=== PATIENT | female | born 1960 | race Caucasian/White ===

== ENCOUNTER 2017-01-19 10:42 | Inpatient (IN) ==
[2017-01-15 13:36] LABS: Appearance,Urine CLOUDY; Bacteria,Urine 0 /hpf (0); Bilirubin,Urine NEG (NEG); Color,Urine YELLOW; Glucose,Urine (UA) NEGATIVE (NEG); Leukocyte Esterase,Urine 25 /uL (NEG); Mucus,Urine FEW /hpf (0); Nitrate,Urine NEG (NEG); Protein,Urine NEG (NEG); Urine Amorphous Crystals FEW /hpf (0); Urine Blood NEG mg/dL (<0.03); Urine RBC < 1 /hpf (0-1); Urine Squamous Epithelial Cell 2 /hpf (0-4); Urine WBC 1 /hpf (0-4); Urobilinogen,Urine NEG (NEG)
[2017-01-15 14:39] LABS: Basophils # (Auto) 0 K/mcL (0.0-0.3); Basophils % (Auto) 0.4 % (0.0-2.0); Eosinophils # (Auto) 0.3 K/mcL (0.0-0.7); Eosinophils % (Auto) 3.3 % (0.0-7.0); Granulocytes % (Auto) 57.6 % (38.0-78.0); Lymphocytes # (Auto) 2.6 K/mcL (1.5-4.8); Lymphocytes % (Auto) 29.6 % (15.5-49.0); Mean Cell Volume 83.8 fL (80.0-100.0); Mean Corpuscular HGB Conc 33.3 g/dL (31.0-36.0); Mean Corpuscular Hemoglobin 27.9 pg (26.0-34.0); Monocytes # (Auto) 0.8 K/mcL (0.1-0.9); Monocytes % (Auto) 9.1 % (1.0-12.0); Platelet Count 282 K/mcL (140-440); RBC 5.23 M/mcL (4.00-5.20); Red Cell Distribution Width 14.6 % (11.5-14.5)
[2017-01-15 14:54] LABS: Blood Urea Nitrogen 13 mg/dl (6-20)
[~2017-01-19 10:42] MED LIST: ACETAMINOPHEN 500 MG TABLET PO SCH; CELECOXIB 200 MG CAPSULE PO SCH; KETOROLAC 30 MG, ROPIVACAINE HCL/PF 49.5 ML, EPINEPHrine 0.5 MG, 0.9 % SODIUM CHLORIDE ... IJ SCH; PREGABALIN 75 MG CAPSULE PO SCH; ceFAZolin 1 GM VIAL IV SCH; oxyCODONE 10 MG TAB.ER.12H PO SCH
[2017-01-19 12:00] LABS: Appearance,Urine CLEAR; Bilirubin,Urine NEG (NEG); Color,Urine YELLOW; Glucose,Urine (UA) NEGATIVE (NEG); Leukocyte Esterase,Urine NEG /uL (NEG); Nitrate,Urine NEG (NEG); Protein,Urine NEG (NEG); Specific Gravity,Urine 1.018 (1.000-1.035); Urine Blood NEG mg/dL (<0.03); Urobilinogen,Urine NEG (NEG)
[2017-01-19] MEDS ORDERED: ONDANSETRON 4 MG/2 ML VIAL IV ONE (12:25)
[2017-01-19] MEDS ORDERED: PROPOFOL 200 MG/20 ML VIAL IV ONE (12:25)
[2017-01-19] MEDS ORDERED: MIDAZOLAM 5 MG/5 ML VIAL IV ONE (12:25)
[2017-01-19] MEDS ORDERED: TRANEXAMIC ACID 1,000 MG/10 ML VIAL IV ONE ×2 (12:25→14:06)
[2017-01-19] MEDS ORDERED: DEXAMETHASONE 10 MG/ML VIAL IV ONE (12:25)
[2017-01-19] MEDS ORDERED: ROPIVACAINE HCL/PF 30 ML VIAL IJ ONE (12:25)
[2017-01-19] MEDS ORDERED: LIDOCAINE HCL/PF 100 MG/5 ML SYRINGE IV ONE (12:25)
[2017-01-19] MEDS ORDERED: GENTAMICIN SULFATE 800 MG/20 ML VIAL IR ONE (13:14)
[2017-01-19] MEDS ORDERED: FLEETS ADULT ENEMA PR PRN (14:06)
[2017-01-19] MEDS ORDERED: ACETAMINOPHEN 325 MG TABLET PO PRN (14:06)
[2017-01-19] MEDS ORDERED: BENZOCAINE/MENTHOL 1 LOZENGE PO PRN ×2 (14:06→14:26)
[2017-01-19] MEDS ORDERED: TEMAZEPAM 15 MG CAPSULE PO PRN (14:06)
[2017-01-19] MEDS ORDERED: MAGNESIUM HYDROXIDE 30 ML ORAL.SUSP PO PRN (14:06)
[2017-01-19] MEDS ORDERED: POLYETHYLENE GLYCOL 3350 17 GM PACKET PO PRN (14:06)
[2017-01-19] MEDS ORDERED: BISACODYL 10 MG SUPP.RECT PR PRN (14:06)
[2017-01-19] MEDS ORDERED: IPRATROPIUM/ALBUTEROL 3 ML AMPUL.NEB NEB PRN (14:26)
[2017-01-19] MEDS ORDERED: NALOXONE HCL 0.4 MG/ML VIAL IV PRN (14:26)
[2017-01-19] MEDS ORDERED: diphenhydrAMINE 50 MG/ML VIAL IV PRN (14:26)
[2017-01-19] MEDS ORDERED: PROMETHAZINE 25 MG/ML VIAL IV PRN (14:26)
[2017-01-19] MEDS ORDERED: LACTATED RINGERS 250 ML IV PRN (14:26)
[2017-01-19] MEDS ORDERED: fentaNYL 100 MCG/2 ML VIAL IV PRN (14:26)
[2017-01-19] MEDS ORDERED: MEPERIDINE 25 MG/ML SYRINGE IV PRN (14:26)
[2017-01-19] MEDS ORDERED: FLUMAZENIL 0.1 MG/ML ML IV PRN (14:26)
[2017-01-19] MEDS ORDERED: METHOCARBAMOL 1,000 MG/10 ML VIAL IV PRN (14:26)
[2017-01-19] MEDS ORDERED: ONDANSETRON 4 MG/2 ML VIAL IV PRN (14:26)
[2017-01-19] MEDS ORDERED: ACETAMINOPHEN 1,000 MG/100 ML BOTTLE IV ONE (14:26)
[2017-01-19] MEDS ORDERED: LACTATED RINGERS 1,000 ML IV SCH (14:30)
--- NOTE | 2017-01-19 14:51 | XRay Report ---
CLINICAL INFORMATION: Postsurgical follow-up TECHNIQUE: AP and crosstable lateral right knee COMPARISON: None. FINDINGS: Status post right total knee arthroplasty. Femoral and tibial complements are in anatomic positions. There is postsurgical soft tissue and intra-articular gas. IMPRESSION: Right total knee arthroplasty Interpreted and Authenticated by: Dipesh Rico 01/19/17
[2017-01-19] MEDS: 0.45 % SODIUM CHLORIDE 1,000 ML IV SCH (15:36)
[2017-01-19] MEDS: HYDROcodone/APAP 10/325MG TABLET PO PRN ×3 (16:18→23:33)
--- NOTE | 2017-01-19 16:42 | Brief Operative Note ---
Date of procedure: 01/19/17 Pre-op diagnosis: Right knee djd Post-op diagnosis: same Procedure: right knee tka with shayla robot Grafts/Implants: Yes Anesthesia: GETA Complications Description: 01/19/17 16:41 none Surgeon: Taiwo Xie Electric Melt Operator: Donnie Hudson Estimated blood loss (cc): 20 Tourniquet Time (Minutes): 55 Specimens Removed/Pathology: none sent Condition: stable Disposition: PACU
[2017-01-19] MEDS: KETOROLAC 15 MG/ML VIAL IV SCH ×2 (17:34→23:33)
[2017-01-19] MEDS: HYDROmorphone 2 MG/ML SYRINGE IV PRN (18:15)
[2017-01-19] MEDS: ceFAZolin 1 GM VIAL IV SCH (20:47)
[2017-01-19] MEDS: ASPIRIN 325 MG ENTERIC COATED TABLET PO SCH (20:48)
[2017-01-19] MEDS: 0.9 % SODIUM CHLORIDE 10 ML SYRINGE IV SCH (20:48)
[2017-01-19] MEDS: SENNOSIDES 1 TABLET PO SCH (20:48)
[2017-01-19] MEDS: DOCUSATE SODIUM 100 MG CAPSULE PO SCH (20:48)
[2017-01-19] MEDS: LORazepam 1 MG TABLET PO PRN (22:30)
[2017-01-19] MEDS: TOPIRAMATE 100 MG TABLET PO SCH (22:30)
[2017-01-19] MEDS: QUEtiapine 100 MG TABLET PO SCH (22:30)
[2017-01-19] MEDS: NORTRIPTYLINE 25 MG CAPSULE PO SCH (22:30)
[2017-01-20] MEDS: 0.45 % SODIUM CHLORIDE 1,000 ML IV SCH ×2 (01:22→11:01)
[2017-01-20] MEDS: ceFAZolin 1 GM VIAL IV SCH (03:40)
[2017-01-20] MEDS: HYDROcodone/APAP 10/325MG TABLET PO PRN ×5 (04:14→23:07)
[2017-01-20] MEDS: 0.9 % SODIUM CHLORIDE 10 ML SYRINGE IV SCH ×4 (05:19→21:38)
[2017-01-20] MEDS: KETOROLAC 15 MG/ML VIAL IV SCH ×4 (05:50→23:57)
[2017-01-20] MEDS: HYDROmorphone 2 MG/ML SYRINGE IV PRN (06:59)
--- NOTE | 2017-01-20 08:00 | Orthopedic Progress Note ---
Subjective Patient information: Note initiated : 01/20/17 at 8:00 am Service Date, if different from initiated Date: [] Patient: Sunita Rich 56 y/o F admitted on 01/19/17 for Right Total Knee Arthroplasty with shayla Assist. Chief Complaint: [doing well no cp no sob] Objective Vital signs: Vital Signs Temp Pulse Resp BP Pulse Ox 01/20/17 07:35 98 01/20/17 04:00 97.7 F 86 22 136/81 96 01/19/17 23:35 97.8 F 90 22 127/79 94 01/19/17 23:34 94 01/19/17 20:17 93 01/19/17 19:18 98.6 F 101 H 24 H 119/63 94 01/19/17 17:30 92 H 20 120/78 95 01/19/17 17:00 98.4 F 92 H 20 120/78 95 01/19/17 16:30 90 130/84 97 01/19/17 16:00 84 138/80 96 01/19/17 15:45 82 152/84 91 01/19/17 15:15 98.0 F 20 130/80 92 01/19/17 15:03 97.2 F 84 19 134/57 95 01/19/17 14:55 84 21 164/69 96 01/19/17 14:50 88 17 117/69 100 01/19/17 14:40 84 19 131/62 100 01/19/17 14:35 87 19 136/61 99 01/19/17 14:30 86 18 140/63 98 01/19/17 14:25 97.6 F 89 25 H 121/61 98 01/19/17 10:55 97.9 F 20 128/85 95 Intake and Output 01/19/17 01/20/17 01/20/17 21:59 05:59 13:59 Intake Total 2563 / 2563 1177 / 1177 Output Total 951 / 951 850 / 850 500 / 500 Balance 1612 / 1612 327 / 327 -500 / -500 Intake: IV 2563 / 2563 977 / 977 Sodium Chloride 0.45% 1, 977 / 977 000 ml @ 100 mls/hr IV . Q10H [facility] Rx#:[id number] Oral 200 / 200 Output: Void Amount 850 / 850 850 / 850 500 / 500 # of times incontinent of 1 / 1 urine Estimated Blood Loss 100 / 100 Other: # Voids 1 1 Weight 270 lb Intake & Output: Intake & Output 01/19/17 01/20/17 01/20/17 21:59 05:59 13:59 Intake Total 2563 / 2563 1177 / 1177 Output Total 951 / 951 850 / 850 500 / 500 Balance 1612 / 1612 327 / 327 -500 / -500 Weight 270 lb Intake: IV 2563 / 2563 977 / 977 Sodium Chloride 0.45% 1, 977 / 977 000 ml @ 100 mls/hr IV . Q10H [facility] Rx#:[id number] Oral 200 / 200 Output: Void Amount 850 / 850 850 / 850 500 / 500 # of times incontinent of 1 / 1 urine Estimated Blood Loss 100 / 100 Other: # Voids 1 1 Incision: Yes healing Incision clean and dry: Yes Dressing: Yes clean Weight bearing status: full Neurological exam IM: Yes oriented X3, Yes neurovascular intact Extremities exam IM: Yes Foot pink and warm, Yes neurovascular intact - Labs CBC & BMP: 01/20/17 05:20 01/15/17 12:01 Labs: Orthopedic Labs 01/15/17 12:01 PT 13.6 INR 1.0 APTT 28 01/20/17 01/15/17 05:20 12:01 Hgb 14.6 Hct 34.7 L 43.8
--- NOTE | 2017-01-20 08:03 | Discharge Summary ---
Ortho Discharge - TKA - Patient Instructions Diet: Regular Diet Activity: activity as tolerated, weight bearing as tolerated Total Knee Protocol: For Total Knee: Start ROM ALICIA with stationary bike or rocking chair. Work on gaining full extension of knee. Posterior dislocation precautions provided. Hip abductor strengthening and gait training instructions provided. Apply Cryocuff as instructed. Dressing Care: Aquacel Ag - leave on for 5 days Patient Education: Total Knee Replacement (DC) Additional Instructions: CPM for home use - Follow Up Plan Follow Up Appointments: Taiwo Xie MD [Physician] - 02/03/17 3:10 pm Disposition: Home, Self-Care Prognosis: Good Rehab Potential: Good I certify that the patient requires SNF services: No Overall status at discharge: patient is progressing back to baseline - Orders For Discharge Prescriptions: HYDROcodone/APAP 10/325MG [[place] 10/325Mg] 1 - 2 tab PO Q4H PRN #60 tablet PRN Reason: Pain Additional Discharge Orders: Physical Therapy at Discharge - TKA Location: Determined By Patient Toilet Riser Discharge Order Location: Determined By Patient Walker Location: Determined By Patient
[2017-01-20] MEDS: PANTOPRAZOLE 40 MG TABLET PO SCH (08:04)
[2017-01-20] MEDS: ARIPIPRAZOLE 10 MG TABLET PO SCH (09:59)
[2017-01-20] MEDS: DOCUSATE SODIUM 100 MG CAPSULE PO SCH ×2 (10:00→19:55)
[2017-01-20] MEDS: ASPIRIN 325 MG ENTERIC COATED TABLET PO SCH ×2 (10:01→19:55)
[2017-01-20] MEDS: FUROSEMIDE 20 MG TABLET PO SCH ×2 (10:02→12:54)
[2017-01-20] MEDS: DULoxetine 30 MG CAPSULE PO SCH (10:04)
[2017-01-20] MEDS: LORazepam 1 MG TABLET PO PRN ×2 (10:06→19:54)
[2017-01-20] MEDS: ONDANSETRON 4 MG/2 ML VIAL IV PRN (19:51)
[2017-01-20] MEDS: TOPIRAMATE 100 MG TABLET PO SCH (19:54)
[2017-01-20] MEDS: QUEtiapine 100 MG TABLET PO SCH (19:55)
[2017-01-20] MEDS: SENNOSIDES 1 TABLET PO SCH (19:55)
[2017-01-20] MEDS: NORTRIPTYLINE 25 MG CAPSULE PO SCH (19:55)
[2017-01-21] MEDS: HYDROcodone/APAP 10/325MG TABLET PO PRN ×3 (04:31→12:28)
[2017-01-21] MEDS: KETOROLAC 15 MG/ML VIAL IV SCH ×2 (05:05→12:29)
[2017-01-21] MEDS: 0.9 % SODIUM CHLORIDE 10 ML SYRINGE IV SCH (05:21)
--- NOTE | 2017-01-21 07:07 | Orthopedic Progress Note ---
Subjective Patient information: Note initiated : 01/21/17 at 7:06 am Service Date, if different from initiated Date: [] Patient: Sunita Rich 56 y/o F admitted on 01/19/17 for Right Total Knee Arthroplasty with shayla Assist. Chief Complaint: [minimal pain with no cp no sob] Objective Vital signs: Vital Signs Temp Pulse Resp BP Pulse Ox 01/21/17 04:00 98.6 F 91 H 26 H 97/62 94 01/20/17 23:17 98.5 F 111 H 28 H 108/74 93 01/20/17 21:06 99.0 F H 01/20/17 19:15 101.5 F H 123 H 30 H 127/78 93 01/20/17 17:11 98.9 F 104 H 22 166/79 97 01/20/17 11:46 98.2 F 89 16 110/74 92 01/20/17 07:57 98 F 86 135/70 91 01/20/17 07:35 98 Intake and Output 01/20/17 01/21/17 01/21/17 21:59 05:59 13:59 Intake Total 600 / 600 1580 / 1580 Output Total 200 / 200 Balance 599 / 599 1380 / 1380 Intake: Oral 600 / 600 1580 / 1580 Output: Void Amount 200 / 200 Other: Meal Dinner Percent of Meal Consumed 0% # Voids 1 1 # Bowel Movements 0 Weight 272 lb 275 lb Intake & Output: Intake & Output 01/20/17 01/21/17 01/21/17 21:59 05:59 13:59 Intake Total 600 / 600 1580 / 1580 Output Total 200 / 200 Balance 599 / 599 1380 / 1380 Weight 272 lb 275 lb Intake: Oral 600 / 600 1580 / 1580 Output: Void Amount 200 / 200 Other: Meal Dinner Percent of Meal Consumed 0% # Voids 1 1 # Bowel Movements 0 Incision: Yes healing Incision clean and dry: Yes Dressing: Yes clean Weight bearing status: full Neurological exam IM: Yes oriented X3, Yes neurovascular intact Extremities exam IM: Yes Foot pink and warm (dc home), Yes neurovascular intact - Labs CBC & BMP: 01/20/17 05:20 01/15/17 12:01 Labs: Orthopedic Labs 01/15/17 12:01 PT 13.6 INR 1.0 APTT 28 01/20/17 01/15/17 05:20 12:01 Hgb 14.6 Hct 34.7 L 43.8
[2017-01-21] MEDS: PANTOPRAZOLE 40 MG TABLET PO SCH (07:10)
[2017-01-21] MEDS: ASPIRIN 325 MG ENTERIC COATED TABLET PO SCH (08:25)
[2017-01-21] MEDS: DOCUSATE SODIUM 100 MG CAPSULE PO SCH (08:25)
[2017-01-21] MEDS: ARIPIPRAZOLE 10 MG TABLET PO SCH (08:25)
[2017-01-21] MEDS: DULoxetine 30 MG CAPSULE PO SCH (08:25)
[2017-01-21] MEDS: FUROSEMIDE 20 MG TABLET PO SCH ×2 (08:25→12:28)
[2017-01-21] MEDS: ONDANSETRON 4 MG/2 ML VIAL IV PRN (09:14)
== END 2017-01-21 15:30 | disposition home or self-care (01) | DRG 470 ==
LOC: MEDSUR 10:42
PROVIDERS: ADMIT Orthopaedic Surgery; ATTEND Orthopaedic Surgery

== ENCOUNTER 2018-09-13 08:07 | Inpatient (IN) ==
[2018-09-07 12:01] LABS: Appearance,Urine HAZY; Bacteria,Urine FEW /hpf (0); Bilirubin,Urine NEG (NEG); Color,Urine YELLOW; Glucose,Urine (UA) NEGATIVE (NEG); Leukocyte Esterase,Urine 500 /uL (NEG); Protein,Urine NEG (NEG); Specific Gravity,Urine 1.018 (1.000-1.035); Urine Blood 0.03 mg/dL (<0.03); Urine RBC 4 /hpf (0-1); Urine Squamous Epithelial Cell 5 /hpf (0-4); Urine WBC 41 /hpf (0-4); Urobilinogen,Urine NEG (NEG)
[2018-09-07 12:14] LABS: Basophils # (Auto) 0 K/mcL (0.0-0.3); Basophils % (Auto) 0.5 % (0.0-2.0); Eosinophils # (Auto) 0.2 K/mcL (0.0-0.7); Granulocytes % (Auto) 66.5 % (38.0-78.0); Lymphocytes # (Auto) 1.9 K/mcL (1.5-4.8); Lymphocytes % (Auto) 23.9 % (15.5-49.0); Mean Cell Volume 84.2 fL (80.0-100.0); Mean Corpuscular HGB Conc 32.2 g/dL (31.0-36.0); Monocytes # (Auto) 0.5 K/mcL (0.1-0.9); Monocytes % (Auto) 6.1 % (1.0-12.0); Platelet Count 241 K/mcL (140-440); Red Cell Distribution Width 14.1 % (11.5-14.5)
[2018-09-07 12:26] LABS: Blood Urea Nitrogen 28 mg/dl (6-20)
[~2018-09-13 08:07] MED LIST changes: +0.9 % SODIUM CHLORIDE 9 ML, KETOROLAC 30 MG, ROPIVACAINE HCL/PF 49.5 ML, EPINEPHrine 0.... IJ SCH; -KETOROLAC 30 MG, ROPIVACAINE HCL/PF 49.5 ML, EPINEPHrine 0.5 MG, 0.9 % SODIUM CHLORIDE ... IJ SCH
[2018-09-13 10:20] LABS: Appearance,Urine CLEAR; Bilirubin,Urine NEG (NEG); Color,Urine YELLOW; Glucose,Urine (UA) NEGATIVE (NEG); Leukocyte Esterase,Urine NEG /uL (NEG); Protein,Urine NEG (NEG); Specific Gravity,Urine 1.017 (1.000-1.035); Urine Blood NEG mg/dL (<0.03); Urobilinogen,Urine NEG (NEG)
[2018-09-13] MEDS ORDERED: GENTAMICIN SULFATE 800 MG/20 ML VIAL IR ONE (10:46)
[2018-09-13] MEDS ORDERED: ROPIVACAINE HCL/PF 20 ML VIAL IJ ONE (11:37)
[2018-09-13] MEDS ORDERED: PROPOFOL 200 MG/20 ML VIAL IV ONE (11:37)
[2018-09-13] MEDS ORDERED: MIDAZOLAM 5 MG/5 ML VIAL IV ONE (11:37)
[2018-09-13] MEDS ORDERED: DEXAMETHASONE 10 MG/ML VIAL IV ONE (11:37)
[2018-09-13] MEDS ORDERED: TRANEXAMIC ACID 1,000 MG/10 ML VIAL IV ONE ×2 (11:37→14:19)
[2018-09-13] MEDS ORDERED: LIDOCAINE HCL/PF 100 MG/5 ML SYRINGE IV ONE (11:37)
[2018-09-13] MEDS ORDERED: ONDANSETRON 4 MG/2 ML VIAL IV ONE (11:37)
[2018-09-13] MEDS ORDERED: METHOCARBAMOL 1,000 MG/10 ML VIAL IV PRN (14:19)
[2018-09-13] MEDS ORDERED: fentaNYL 100 MCG/2 ML VIAL IV PRN (14:19)
[2018-09-13] MEDS ORDERED: diphenhydrAMINE 50 MG/ML VIAL IV PRN (14:19)
[2018-09-13] MEDS ORDERED: METOPROLOL TARTRATE 5 MG/5 ML VIAL IV PRN (14:19)
[2018-09-13] MEDS ORDERED: ATROPINE SULFATE 0.4 MG/ML VIAL IV PRN (14:19)
[2018-09-13] MEDS ORDERED: IPRATROPIUM/ALBUTEROL 3 ML AMPUL.NEB NEB PRN (14:19)
[2018-09-13] MEDS ORDERED: MAGNESIUM HYDROXIDE 30 ML ORAL.SUSP PO PRN (14:19)
[2018-09-13] MEDS ORDERED: BISACODYL 10 MG SUPP.RECT PR PRN (14:19)
[2018-09-13] MEDS ORDERED: POLYETHYLENE GLYCOL 3350 17 GM PACKET PO PRN (14:19)
[2018-09-13] MEDS ORDERED: MEPERIDINE 25 MG/ML SYRINGE IV PRN (14:19)
[2018-09-13] MEDS ORDERED: FLEETS ADULT ENEMA PR PRN (14:19)
[2018-09-13] MEDS ORDERED: NALOXONE HCL 0.4 MG/ML VIAL IV PRN (14:19)
[2018-09-13] MEDS ORDERED: ePHEDrine 50 MG/ML AMPUL IV PRN (14:19)
[2018-09-13] MEDS ORDERED: BENZOCAINE/MENTHOL 1 LOZENGE PO PRN (14:19)
[2018-09-13] MEDS ORDERED: ONDANSETRON 4 MG/2 ML VIAL IV PRN ×2 (14:19)
[2018-09-13] MEDS ORDERED: PROMETHAZINE 25 MG/ML VIAL IV PRN (14:19)
[2018-09-13] MEDS ORDERED: ACETAMINOPHEN 325 MG TABLET PO PRN (14:19)
[2018-09-13] MEDS ORDERED: FLUMAZENIL 0.1 MG/ML ML IV PRN (14:19)
[2018-09-13] MEDS ORDERED: HYDROmorphone 2 MG/ML VIAL IV PRN (14:19)
--- NOTE | 2018-09-13 14:19 | Brief Operative Note ---
Date of procedure: 09/13/18 Pre-op diagnosis: left knee djd severe Post-op diagnosis: same Procedure: left tka with robotics Grafts/Implants: Yes Anesthesia: GETA Complications: none Surgeon: Taiwo Xie Conference And Event Organiser: Shanta Sánchez Estimated blood loss (cc): 100 Tourniquet Time (Minutes): 56 Specimens Removed/Pathology: none sent Condition: stable Disposition: PACU
[2018-09-13] MEDS ORDERED: LACTATED RINGERS 1,000 ML IV SCH (14:30)
--- NOTE | 2018-09-13 15:32 | Operative Note ---
DATE OF OPERATION: 09/13/2018 PREOPERATIVE DIAGNOSIS: Left knee degenerative arthritis, severe. POSTOPERATIVE DIAGNOSIS: Left knee degenerative arthritis, severe. PROCEDURE: Left total knee arthroplasty using the [employer] robot. SURGEON: Taiwo Xie M.D. SALES AND DISTRIBUTION CLERK: Shanta Sánchez PA-C. COMPLICATIONS: None. ESTIMATED BLOOD LOSS: About 100 mL. IMPLANTS: Per nurse's note. Regional blocks were performed during the case DESCRIPTION OF PROCEDURE: The patient was brought to the operating room and put to sleep with general LMA anesthesia. Once asleep, the patient had the left leg sterilely prepped and draped in the usual sterile fashion. Timeout had been performed. We placed pins above and below the knee, registered the center of hip rotation. A midvastus approach performed. The patient tolerated this well without complication. We then inspected all areas of the knee which demonstrated severe arthritis of all three compartments. Once done, we then registered thirty points on the femur, thirty points on the tibia, intra-articular pins, medial and lateral malleoli, and registered center of hip rotation. We balanced the knee at 90 degrees and 15 degrees. Once all done, we then noted that the patient had about 10 to 12 degrees of flexion contracture. At this point, this was balanced into the implant and the robot brought in. The bony cuts were made. We implanted a size 3 tibia, size 3 femoral component with a 10 mm cruciate stabilizing design with a deep dish tray and 10 mm poly. The patella was a 33 mm patella that covered nicely. There were no complications. The components were all cemented into place. Using pulse lavage as well as CarboJet to clean the bone, excess debris was removed, and we irrigated the knee thoroughly keeping the knee at 40 degrees in bend until all components were dry. Once done, we then closed the midvastus approach with #1 Stratafix x2 sutures. Excellent repair. We took the knee back through the range of motion to make sure there was not any significant bleeding and that it had full range of motion which it did. The patella tracked anatomically perfect. There were no complications. Skin was closed with 0 Vicryl, 2-0 Vicryl and adhesive closure. Portals were closed with 4-0 nylon. All pins were accounted for, both intra-articular and femoral and tibial pins. ZACHARY:shalini Job ID: [id number] Doc ID: [id number] Taiwo Xie MD
--- NOTE | 2018-09-13 15:34 | XRay Report ---
HISTORY: Postop left knee replacement FINDINGS: There is a well-positioned left total knee prosthesis. There is no fracture. There is fluid in the suprapatellar recess. A small soft tissue calcification is seen beneath the patella IMPRESSION: Well-positioned left knee prosthesis Interpreted and Authenticated by: Rafat Salas 09/13/18
[2018-09-13] MEDS: HYDROcodone/APAP 10/325MG TABLET PO PRN ×2 (16:09→20:02)
[2018-09-13] MEDS: 0.45 % SODIUM CHLORIDE 1,000 ML IV SCH (16:09)
[2018-09-13] MEDS: KETOROLAC 15 MG/ML VIAL IV SCH (17:38)
[2018-09-13] MEDS: HYDROmorphone 2 MG/ML VIAL IV PRN ×2 (19:05→22:12)
[2018-09-13] MEDS ORDERED: MELOXICAM 7.5 MG TABLET PO SCH (21:00)
[2018-09-13] MEDS: MELATONIN 3 MG TABLET PO SCH (21:25)
[2018-09-13] MEDS: NORTRIPTYLINE 25 MG CAPSULE PO SCH (21:25)
[2018-09-13] MEDS: SENNOSIDES 1 TABLET PO SCH (21:25)
[2018-09-13] MEDS: ASPIRIN 325 MG ENTERIC COATED TABLET PO SCH (21:25)
[2018-09-13] MEDS: DOCUSATE SODIUM 100 MG CAPSULE PO SCH (21:25)
[2018-09-13] MEDS: LORazepam 1 MG TABLET PO PRN (21:26)
[2018-09-13] MEDS: TOPIRAMATE 100 MG TABLET PO SCH (21:26)
[2018-09-13] MEDS: ceFAZolin 1 GM VIAL IV SCH (21:31)
[2018-09-13] MEDS: 0.9 % SODIUM CHLORIDE 10 ML SYRINGE IV SCH (21:31)
[2018-09-13] MEDS: TEMAZEPAM 15 MG CAPSULE PO PRN (23:13)
[2018-09-14] MEDS: KETOROLAC 15 MG/ML VIAL IV SCH ×4 (00:07→17:45)
[2018-09-14] MEDS: HYDROcodone/APAP 10/325MG TABLET PO PRN ×7 (00:08→23:46)
[2018-09-14] MEDS: 0.45 % SODIUM CHLORIDE 1,000 ML IV SCH ×3 (00:20→18:55)
[2018-09-14] MEDS: 0.9 % SODIUM CHLORIDE 10 ML SYRINGE IV SCH ×3 (05:49→20:08)
--- NOTE | 2018-09-14 07:26 | Orthopedic Progress Note ---
Subjective Patient information: Note initiated : 09/14/18 at 7:25 am Service Date, if different from initiated Date: [] Patient: Sunita Rich 57 y/o F admitted on 09/13/18 for Left Robotic Total Knee Arthroplasty. Chief Complaint: [Pt is stable this morning on post operative day 1 without any significant concerns or complaints. Patients vital signs have remained stable. Patients dressing is dry and is grossly intact from a neurovascular and motor standpoint. Patients 10 point ROS is otherwise negative. ] Objective Vital signs: Vital Signs Temp Pulse Resp BP Pulse Ox 09/14/18 03:41 97.5 F 65 22 107/59 95 09/14/18 00:16 97.3 F 72 22 126/66 94 09/14/18 00:09 86 09/13/18 19:48 97.7 F 86 24 H 123/65 93 09/13/18 19:45 16 09/13/18 17:43 107/62 91 09/13/18 17:07 132/70 91 09/13/18 16:37 129/65 94 09/13/18 16:22 122/65 96 09/13/18 16:07 122/66 93 09/13/18 15:52 142/72 93 09/13/18 15:45 77 16 94 09/13/18 15:36 97.9 F 140/72 96 09/13/18 15:20 97.4 F 79 10 L 139/68 97 09/13/18 15:05 97.7 F 84 15 135/87 97 09/13/18 14:50 79 20 128/76 100 09/13/18 14:45 80 16 128/61 100 09/13/18 14:40 97.7 F 88 16 141/80 97 09/13/18 09:15 82 16 92 09/13/18 08:39 98.5 F 16 119/65 91 Intake and Output 09/13/18 09/14/18 09/14/18 21:59 05:59 13:59 Intake Total 1500 1200 Output Total 1725 450 Balance 1500 -525 -450 Intake: Oral 1200 IV - Manual Only 1500 Output: Void Amount 1725 450 Other: Urine Appearance Clear Urine Color Straw Urine Odor Normal Weight 246 lb Intake & Output: Intake & Output 09/13/18 09/14/18 09/14/18 21:59 05:59 13:59 Intake Total 1500 1200 Output Total 1725 450 Balance 1500 -525 -450 Weight 246 lb Intake: Oral 1200 IV - Manual Only 1500 Output: Void Amount 1725 450 Other: Urine Appearance Clear Urine Color Straw Urine Odor Normal Incision: Yes healing Incision clean and dry: Yes Dressing: Yes clean Weight bearing status: full Neurological exam IM: Yes motor sensory intact, Yes neurovascular intact Extremities exam IM: Yes Foot pink and warm, Yes neurovascular intact - Labs CBC & BMP: 09/14/18 04:05 09/07/18 09:46 Labs: Orthopedic Labs 09/07/18 09:46 PT 13.3 INR 1.0 09/14/18 09/07/18 04:05 09:46 Hgb 14.9 Hct 38.8 46.4 Assessment and Plan (1) Hx of total knee arthroplasty The patient has been educated regarding dressing care, Physical Therapy recommendations, home exercises, restrictions, and follow up appointments. The patient has had all necessary DME prescribed. The patient has remained relatively stable during their hospital course. Leave Dermabond patch intact until followup Status: Acute
--- NOTE | 2018-09-14 07:29 | Discharge Summary ---
Ortho Discharge - TKA - Patient Instructions Diet: Regular Diet Activity: activity as tolerated, weight bearing as tolerated Total Knee Protocol: For Total Knee: Start ROM ALICIA with stationary bike or rocking chair. Work on gaining full extension of knee. Posterior dislocation precautions provided. Hip abductor strengthening and gait training instructions provided. Apply Cryocuff as instructed. Dressing Care: May shower in 2 days Patient Education: Total Knee Replacement (DC) - Problem Maintenance (1) Hx of total knee arthroplasty Status: Acute - Follow Up Plan Follow Up Appointments: Rich Huitron PA-C [Physician Subacute Nurse] - 09/28/18 9:30 am Disposition: Home, Self-Care Prognosis: Good Rehab Potential: Good I certify that the patient requires SNF services: No Overall status at discharge: patient is progressing back to baseline - Orders For Discharge Prescriptions: Aspirin [Ecotrin] 325 mg PO BID #60 tab.ec Docusate Sodium [Colace] 100 mg PO BID #60 capsule HYDROcodone/APAP 10/325MG [[place] 10-325Mg] 1 - 2 tab PO Q4HP PRN #75 tab PRN Reason: Pain Level 3-6
[2018-09-14] MEDS: ceFAZolin 1 GM VIAL IV SCH (07:40)
[2018-09-14] MEDS: PANTOPRAZOLE 40 MG TABLET PO SCH (07:41)
[2018-09-14] MEDS: FUROSEMIDE 40 MG TABLET PO SCH ×2 (07:41→11:53)
[2018-09-14] MEDS: DOCUSATE SODIUM 100 MG CAPSULE PO SCH ×2 (10:11→20:07)
[2018-09-14] MEDS: SPIRONOLACTONE 25 MG TABLET PO SCH (10:12)
[2018-09-14] MEDS: BENZTROPINE 1 MG TABLET PO SCH (10:12)
[2018-09-14] MEDS: ASPIRIN 325 MG ENTERIC COATED TABLET PO SCH ×2 (10:13→20:08)
[2018-09-14] MEDS: DULoxetine 30 MG CAPSULE PO SCH (10:24)
[2018-09-14] MEDS: ARIPIPRAZOLE 20 MG TABLET PO SCH (10:28)
[2018-09-14] MEDS: HYDROmorphone 2 MG/ML VIAL IV PRN ×2 (10:47→21:49)
[2018-09-14] MEDS: MELATONIN 3 MG TABLET PO SCH (20:07)
[2018-09-14] MEDS: SENNOSIDES 1 TABLET PO SCH (20:07)
[2018-09-14] MEDS: TOPIRAMATE 100 MG TABLET PO SCH (20:07)
[2018-09-14] MEDS: NORTRIPTYLINE 25 MG CAPSULE PO SCH (20:07)
[2018-09-14] MEDS: LORazepam 1 MG TABLET PO PRN (20:07)
[2018-09-14] MEDS: TEMAZEPAM 15 MG CAPSULE PO PRN (20:53)
[2018-09-15] MEDS: KETOROLAC 15 MG/ML VIAL IV SCH ×3 (00:29→12:38)
[2018-09-15] MEDS: HYDROcodone/APAP 10/325MG TABLET PO PRN ×2 (04:01→11:15)
[2018-09-15] MEDS: 0.9 % SODIUM CHLORIDE 10 ML SYRINGE IV SCH ×2 (05:30→12:41)
--- NOTE | 2018-09-15 07:07 | Orthopedic Progress Note ---
Subjective Patient information: Note initiated : 09/15/18 at 7:06 am Service Date, if different from initiated Date: [] Patient: Sunita Rich 57 y/o F admitted on 09/13/18 for Left Robotic Total Knee Arthroplasty. Chief Complaint: [doing well and walking well and pain is 3-5] Objective Vital signs: Vital Signs Temp Pulse Resp BP Pulse Ox 09/15/18 03:55 98.0 F 73 18 111/60 94 09/15/18 00:00 97.7 F 70 18 116/64 93 09/14/18 20:03 97.8 F 69 20 104/56 94 09/14/18 19:07 63 16 09/14/18 16:00 97.8 F 63 16 122/59 96 09/14/18 12:30 95 09/14/18 12:05 97.4 F 65 14 117/63 90 09/14/18 08:00 97.3 F 61 22 104/58 97 09/14/18 07:40 61 18 97 Intake and Output 09/14/18 09/15/18 09/15/18 21:59 05:59 13:59 Intake Total 480 1000 Output Total 700 350 Balance -220 650 Intake: Oral 480 1000 Output: Void Amount 700 350 Other: Meal Dinner Negrito crackers (2 packs) Percent of Meal Consumed 100% 100% Feeding Ability Independent Independent Urine Appearance Clear Urine Color Bright Yellow Urine Odor Normal # Voids 1 Weight 245 lb Intake & Output: Intake & Output 09/14/18 09/15/18 09/15/18 21:59 05:59 13:59 Intake Total 480 1000 Output Total 700 350 Balance -220 650 Weight 245 lb Intake: Oral 480 1000 Output: Void Amount 700 350 Other: Meal Dinner Negrito crackers (2 packs) Percent of Meal Consumed 100% 100% Feeding Ability Independent Independent Urine Appearance Clear Urine Color Bright Yellow Urine Odor Normal # Voids 1 Incision: Yes healing Incision clean and dry: Yes Dressing: Yes dry Weight bearing status: full Neurological exam IM: Yes oriented X3, Yes neurovascular intact Extremities exam IM: Yes Foot pink and warm, Yes neurovascular intact - [place] Pulses Peripheral pulses: 1+: posterior tibialis (L), posterior tibialis (R) - Labs CBC & BMP: 09/14/18 04:05 09/07/18 09:46 Labs: Orthopedic Labs 09/07/18 09:46 PT 13.3 INR 1.0 09/14/18 09/07/18 04:05 09:46 Hgb 14.9 Hct 38.8 46.4
[2018-09-15] MEDS: 0.45 % SODIUM CHLORIDE 1,000 ML IV SCH (11:03)
[2018-09-15] MEDS: FUROSEMIDE 40 MG TABLET PO SCH ×2 (11:03→12:39)
[2018-09-15] MEDS: ASPIRIN 325 MG ENTERIC COATED TABLET PO SCH (11:04)
[2018-09-15] MEDS: BENZTROPINE 1 MG TABLET PO SCH (11:04)
[2018-09-15] MEDS: DULoxetine 30 MG CAPSULE PO SCH (11:06)
[2018-09-15] MEDS: DOCUSATE SODIUM 100 MG CAPSULE PO SCH (11:08)
[2018-09-15] MEDS: PANTOPRAZOLE 40 MG TABLET PO SCH (11:09)
[2018-09-15] MEDS: ARIPIPRAZOLE 20 MG TABLET PO SCH (11:09)
[2018-09-15] MEDS: SPIRONOLACTONE 25 MG TABLET PO SCH (11:16)
== END 2018-09-15 14:30 | disposition home or self-care (01) | DRG 470 ==
LOC: MEDSUR 08:07
PROVIDERS: ADMIT Orthopaedic Surgery; ATTEND Orthopaedic Surgery